=== PATIENT | female | born 1985 | race Caucasian/White ===

== ENCOUNTER 2016-12-28 16:16 | Outpatient (CLI) | payer OTHER | END 2016-12-28 17:52 | disposition home or self-care (01) | LOC: LDOP 16:16 | PROVIDERS: ATTEND Obstetrics & Gynecology | DX: O26.853 Spotting complicating pregnancy, third trimester (principal); O44.43 Low lying placenta NOS or without hemorrhage, third trimester; Z3A.30 30 weeks gestation of pregnancy | CPT/HCPCS: 59025; 99201; G0463 ==